=== PATIENT | male | born 1965 ===

== ENCOUNTER 2017-05-09 18:13 | Inpatient (IN) | payer OTHER ==
[2017-05-09 20:52] VITALS: BMI 23.1
--- NOTE | 2017-05-09 20:52 | HP ---
COWS - Scale Resting Pulse: 0= [place] 80 or Below Sweatin= Chills/Flushing Restless Observation: 3= Extraneous Movement Pupil Size: 0= Normal to Room Light Bone or Joint Aches: 2= Severe Diffuse Aches Runny Nose/ Eye Tearin= Runny Nose/Eyes GI Upset > 30mins: 2= Nausea/Diarrhea Tremor Observation: 2= Slight Tremor Visible Yawning Observation: 0= None Anxiety or Irritability: 2=Irritable/Anxious Goose Flesh Skin: 0=Smooth Skin COWS Score: [address] [facility] Chief Complaint: withdrawal sx Allergies/Adverse Reactions: Allergies Allergy/AdvReac Type Severity Reaction Status Date / Time No Known Allergies Allergy Verified 05/09/17 20:47 History of Present Illness: 51 years old male with long history of opioid nicotine dependence denies medical issue has depression is admitted to detox Exam Limitations: No Limitations - Ebola screening Have you traveled outside of the country in the last 21 days: No (N) Have you had contact with anyone from an Ebola affected area: No Have you been sick,other than usual withdrawal symptoms: No Do you have a fever: No - Review of Systems Constitutional: Loss of Appetite, Changes in sleep, Unintentional Wgt. Loss, Unexplained wgt Loss EENT: reports: No Symptoms Reported Respiratory: reports: No Symptoms reported Cardiac: reports: No Symptoms Reported GI: reports: Nausea, Poor Appetite, Poor Fluid Intake, Abdominal cramping : reports: No Symptoms Reported Musculoskeletal: reports: Back Pain, Joint Pain, Muscle Pain, Neck Pain Integumentary: reports: No Symptoms Reported Neuro: reports: Tremors Endocrine: reports: No Symptoms Reported Hematology: reports: No Symptoms Reported Psychiatric: reports: Judgement Intact, Orientated x3, Depressed Other Systems: Reviewed and Negative Patient History - Patient Medical History Hx Anemia: No Hx Asthma: No Hx Chronic Obstructive Pulmonary Disease (COPD): No Hx Cancer: No Hx Cardiac Disorders: No Hx Congestive Heart Failure: No Hx Hypertension: No Hx Hypercholesterolemia: No Hx Pacemaker: No HX Cerebrovascular Accident: No Hx Seizures: No Hx Dementia: No Hx Diabetes: No Hx Gastrointestinal Disorders: No Hx Liver Disease: No Hx Genitourinary Disorders: No Hx Sexually Transmitted Disorders: No Hx Renal Disease (ESRD): No Hx Thyroid Disease: No Hx Human Immunodeficiency Virus (HIV): No Hx Hepatitis C: No Hx Depression: Yes Hx Suicide Attempt: No Hx Bipolar Disorder: No Hx Schizophrenia: No - Patient Surgical History Past Surgical History: No - PPD History Previous Implant?: Yes Documented Results: Negative w/o proof Implanted On Prior [facility] Admission?: No PPD to be Administered?: Yes - Smoking Cessation Smoking history: Current every day smoker Have you smoked in the past 12 months: Yes Aproximately how many cigarettes per day: 10 Cigars Per Day: 0 Hx Chewing Tobacco Use: No Initiated information on smoking cessation: Yes 'Breaking Loose' booklet given: 05/09/17 - Substance & Tx. History Hx Alcohol Use: No Hx Substance Use: Yes Substance Use Type: Heroin, Opiates Hx Substance Use Treatment: No - Substances Abused Oxycontin Route: Oral Frequency: Daily Amount used: 360 mg Age of first use: 46 Date of Last Use: 05/09/17 Family Disease History - Family Disease History Family Disease History: Other: Father (), Mother () Admission Physical Exam [facility] - Physical General Appearance: Yes: Appropriately Dressed, Mild Distress, Tremorous, Irritable, Sweating, Anxious HEENTM: Yes: Hearing grossly Normal, Normal ENT Inspection, Normocephalic, Normal Voice Respiratory: Yes: Chest Non-Tender, Lungs Clear, Normal Breath Sounds, No Respiratory Distress, No Accessory Muscle Use Neck: Yes: Supple, Trachea in good position Breast: Yes: Breasts Symetrical Cardiology: Yes: Regular Rhythm, S1, S2, Bradycardia Abdominal: Yes: Normal Bowel Sounds, Non Tender, Soft Genitourinary: Yes: Within Normal Limits Back: Yes: Normal Inspection Musculoskeletal: Yes: full range of Motion, Gait Steady, Back pain, Muscle Pain Extremities: Yes: Normal Inspection, Normal Range of Motion, Non-Tender, Tremors Neurological: Yes: Fully Oriented, Alert, Motor Strength 5/5, Normal Response, Depressed Affect Integumentary: Yes: Warm Lymphatic: Yes: Within Normal Limits - Diagnostic (1) Opioid dependence with withdrawal Current Visit: Yes Status: Acute (2) Chronic back pain Current Visit: Yes Status: Chronic Qualifiers: Back pain location: low back pain Back pain laterality: bilateral Sciatica presence: without sciatica Qualified Code(s): M54.5 - Low back pain; G89.29 - Other chronic pain (3) Nicotine dependence Current Visit: Yes Status: Acute Qualifiers: Nicotine product type: cigarettes Substance use status: in withdrawal Qualified Code(s): F17.213 - Nicotine dependence, cigarettes, with withdrawal Cleared for Admission [facility] - Detox or Rehab [facility] Level of Care: Medically Managed Detox Regimen/Protocol: Methadone [facility] Breath Alcohol Content Breath Alcohol Content: 0 Vital Signs - Vital Signs Vital Signs Refused: No Temperature: 97.5 F Temperature Source: Oral Pulse Rate: 55 Respiratory Rate: 18 Blood Pressure: 117/71 BP Location: Left Arm Blood Pressure Position: Sitting - Height Height: 5 ft 8 in - Weight Weight: 152 lb Weight Measurement Method: Standing Scale Body Mass Index (BMI): 23.1 - Bowel Function Bowel Movement: Yes Urine Drug Screen - Control Is Test Valid: Yes - Results Drug Screen Negative: No Urine Drug Screen Results: OPI-Opiates, OXY-Oxycodone
[2017-05-09] MEDS ORDERED: IBUPROFEN 400 MG TABLET (FP) PO PRN (20:57)
[2017-05-09] MEDS ORDERED: MENTHOL/PHENOL 1 EACH UD MM PRN (20:57)
[2017-05-09] MEDS ORDERED: METHADONE HCL 10 MG TABLET (FOR DETOX USE ONLY) PO ONE ×2 (20:57→23:00)
[2017-05-09] MEDS ORDERED: LOPERAMIDE HCL 2 MG CAPSULE PO PRN (20:57)
[2017-05-09] MEDS ORDERED: NICOTINE POLACRILEX 2 MG GUM BUC PRN (20:57)
[2017-05-09] MEDS ORDERED: ACETAMINOPHEN 325 MG TABLET (FP) PO PRN (20:57)
[2017-05-09] MEDS ORDERED: MAG HYDROX/AL HYDROX/SIMETH 30 ML UNIT-DOSE CUP PO PRN (20:57)
[2017-05-09] MEDS ORDERED: MAGNESIUM HYDROX 2400MG/30ML ORAL SUSPENSION 30 ML CUP PO PRN (20:57)
[2017-05-09] MEDS ORDERED: diphenhydrAMINE HCL 50 MG CAPSULE PO PRN (20:57)
[2017-05-09] MEDS ORDERED: MAGNESIUM CITRATE 300 ML BOTTLE PO PRN (20:57)
[2017-05-09] MEDS ORDERED: guaiFENesin/D-METHORPHAN HB 10 ML UNIT-DOSE CUPS PO PRN (20:57)
[2017-05-09] MEDS ORDERED: P-EPHED 60MG/TRIPROLIDI 2.5MG TABLET PO PRN (20:57)
[2017-05-09] MEDS ORDERED: METHADONE HCL 10 MG TABLET (FOR DETOX USE ONLY) ONE (23:13)
[2017-05-09] MEDS: THIAMINE HCL 100 MG TABLET (FP) PO SCH (23:14)
[2017-05-09] MEDS: diazePAM 5 MG TABLET PO PRN (23:15)
[2017-05-09] MEDS: LIDOCAINE PATCH REMOVAL MC SCH (23:15)
[2017-05-09] MEDS: CYCLOBENZAPRINE HCL 10 MG TABLET (FP) PO SCH (23:15)
[2017-05-10 01:15] LABS: URINE APPEARANCE CLEAR; URINE BILIRUBIN NEGATIVE (NEGATIVE); URINE BLOOD NEGATIVE (NEGATIVE); URINE COLOR LTYELLOW; URINE GLUCOSE (UA) NEGATIVE (NEGATIVE); URINE KETONE NEGATIVE (NEGATIVE); URINE LEUK ESTERASE NEGATIVE (NEGATIVE); URINE NITRITE NEGATIVE (NEGATIVE); URINE PROTEIN NEGATIVE (NEGATIVE); URINE UROBILINOGEN NEGATIVE mg/dL (0.2-1.0)
[2017-05-10] MEDS: CYCLOBENZAPRINE HCL 10 MG TABLET (FP) PO SCH ×3 (05:52→22:33)
[2017-05-10] MEDS: diazePAM 5 MG TABLET PO PRN ×3 (05:53→19:45)
--- NOTE | 2017-05-10 09:53 | CONSULT ---
[facility] Psychiatric Consult - Data Date of interview: 05/10/17 Admission source: Self-referred Identifying data: Mr Suazo is a 52 years old [place] male, unemployed with no source of income, living with his sister seeking detox treatment for oxycontin Substance Abuse History: Reports history of opoid use. He started using oxycontin at age 46, consumes 360 mg daily. Last used on 05/09/17 Medical History: Significant for +PPD. Smokes 10 cigarettes daily Psychiatric History: Denies history of previous psychiatric treatment Physical/Sexual Abuse/Trauma History: Denies history of verbal, physical or sexual abuse as well as DV relationship Additional Comment: No criminal history Mental Status Exam - Mental Status Exam Alert and Oriented to: Place, Person Cognitive Function: Fair Patient Appearance: Well Groomed Mood: Depressed Affect: Appropriate Speech Pattern: Clear Voice Loudness: Normal Thought Process: Intact Thought Disorder: Not Present Hallucinations: Denies Suicidal Ideation: Denies Homicidal Ideation: Denies Insight/Judgement: Fair Sleep: Poorly Appetite: Fair Muscle strength/Tone: Normal Gait/Station: Normal Psychiatric Findings - Problem List ([place] 1, 2,3) (1) Substance induced mood disorder Current Visit: Yes Status: Acute (2) Substance-induced sleep disorder Current Visit: Yes Status: Acute (3) Opioid dependence with withdrawal Current Visit: Yes Status: Acute (4) Nicotine dependence Current Visit: Yes Status: Acute Qualifiers: Nicotine product type: cigarettes Substance use status: in withdrawal Qualified Code(s): F17.213 - Nicotine dependence, cigarettes, with withdrawal (5) Positive PPD, treated Current Visit: No Status: Acute - Initial Treatment Plan Initial Treatment Plan: 1) Start Ambien 10 mg po HS prn for insomnia. 2) Continue inpatient detoxification
[2017-05-10] MEDS ORDERED: METHADONE HCL 10 MG TABLET (FOR DETOX USE ONLY) PO ONE (10:00)
[2017-05-10] MEDS: PRENATAL VITAMINS W/ FOLIC ACID TABLET (FP) PO SCH (10:04)
[2017-05-10] MEDS: LIDOCAINE 5% TOPICAL PATCH TP SCH (10:07)
[2017-05-10] MEDS: NICOTINE 14 MG/24 HOURS TOPICAL PATCH TD SCH (10:07)
[2017-05-10 10:13] LABS: MCH 28.8 pg (25.7-33.7); MCHC 33.7 g/dl (32.0-35.9); MEAN CELL VOLUME 85.5 fl (80-96); MEAN PLT VOLUME 10.4 fl (7.5-11.1); PLATELET COUNT 150 K/MM3 (134-434); RDW 13.7 % (11.9-15.9); WHITE BLOOD COUNT 8.1 K/mm3 (4.0-10.0)
[2017-05-10 10:37] LABS: ALBUMIN 2.9 g/dl (3.4-5.0); ALK PHOS 74 U/L (45-117); ANION GAP 4 (8-16); BILIRUBIN,TOTAL 0.3 mg/dL (0.2-1.0); CALCIUM 8.5 mg/dL (8.5-10.1); CO2 30 mmol/L (21-32); CREATININE 0.7 mg/dL (0.7-1.3); GLUCOSE,RANDOM 107 mg/dL (74-106); SGOT/AST 10 U/L (15-37); SGPT/ALT 13 U/L (12-78); TOT PROT 5.6 g/dl (6.4-8.2)
--- NOTE | 2017-05-10 12:14 | EKG ---
Test Reason : Blood Pressure : / mmHG Vent. Rate : 048 BPM Atrial Rate : 048 BPM P-R Int : 124 ms QRS Dur : 102 ms QT Int : 456 ms P-R-T Axes : 069 086 051 degrees QTc Int : 407 ms SINUS BRADYCARDIA INCOMPLETE RIGHT BUNDLE BRANCH BLOCK BORDERLINE ECG WHEN COMPARED WITH ECG OF 09-MAY-2017 23:26, SINUS RHYTHM HAS REPLACED JUNCTIONAL RHYTHM INCOMPLETE RIGHT BUNDLE BRANCH BLOCK IS NOW PRESENT Confirmed by NILA MADRID, NOAH ([id number]) on 05/10/2017 12:14:05 PM Referred By: Confirmed By:NOAH DOTSON MD
--- NOTE | 2017-05-10 12:15 | EKG ---
Test Reason : Blood Pressure : / mmHG Vent. Rate : 063 BPM Atrial Rate : 063 BPM P-R Int : 000 ms QRS Dur : 102 ms QT Int : 434 ms P-R-T Axes : -80 078 043 degrees QTc Int : 444 ms UNUSUAL P AXIS AND SHORT WI, PROBABLE JUNCTIONAL RHYTHM WITH UNDETERMINED RHYTHM IRREGULARITY ABNORMAL ECG NO PREVIOUS ECGS AVAILABLE Confirmed by NOAH DOTSON MD ([id number]) on 05/10/2017 12:14:45 PM Referred By: Confirmed By:NOAH DOTSON MD
--- NOTE | 2017-05-10 15:14 | PN ---
BHS COWS - Scale Resting Pulse: 0= [place] 80 or Below Sweatin= Chills/Flushing Restless Observation: 1= Difficult to Sit Still Pupil Size: 0= Normal to Room Light Bone or Joint Aches: 2= Severe Diffuse Aches Runny Nose/ Eye Tearin= Runny Nose/Eyes GI Upset > 30mins: 1= Stomach Cramp Tremor Observation of Outstretched Hands: 2= Slight Tremor Visible Yawning Observation: 1= 1-2x During Session Anxiety or Irritability: 2=Irritable/Anxious Goose Flesh Skin: 3=Piloerection COWS Score: 15 BHS Progress Note (SOAP) Subjective: Tremors, Sweating, Interrupted Sleep. Objective: PT. A & O X 3, OBSERVED AMBULATING ON UNIT. NO ACUTE DISTRESS. 05/10/17 15:13 Vital Signs Temperature 98.3 F 05/10/17 13:51 Pulse Rate 59 L 05/10/17 13:51 Respiratory Rate 16 05/10/17 13:51 Blood Pressure 99/64 05/10/17 13:51 O2 Sat by Pulse Oximetry (%) Laboratory Tests 05/09/17 05/10/17 05/10/17 23:28 07:00 07:00 WBC 8.1 RBC 5.23 Hgb 15.1 Hct 44.7 MCV 85.5 MCH 28.8 MCHC 33.7 RDW 13.7 Plt Count 150 MPV 10.4 Sodium 141 Potassium 4.1 Chloride 107 Carbon Dioxide 30 Anion Gap 4 L BUN 15 Creatinine 0.7 Creat Clearance w eGFR > 60 Random Glucose 107 H Calcium 8.5 Total Bilirubin 0.3 AST 10 L ALT 13 Alkaline Phosphatase 74 Total Protein 5.6 L Albumin 2.9 L Urine Color Ltyellow Urine Appearance Clear Urine pH 6.0 Ur Specific [place] 1.010 Urine Protein Negative Urine Glucose (UA) Negative Urine Ketones Negative Urine Blood Negative Urine Nitrite Negative Urine Bilirubin Negative Urine Urobilinogen Negative RPR Titer 05/10/17 07:00 WBC RBC Hgb Hct MCV MCH MCHC RDW Plt Count MPV Sodium Potassium Chloride Carbon Dioxide Anion Gap BUN Creatinine Creat Clearance w eGFR Random Glucose Calcium Total Bilirubin AST ALT Alkaline Phosphatase Total Protein Albumin Urine Color Urine Appearance Urine pH Ur Specific [place] Urine Protein Urine Glucose (UA) Urine Ketones Urine Blood Urine Nitrite Urine Bilirubin Urine Urobilinogen RPR Titer Nonreactive labs noted. Assessment: 05/10/17 15:14 WITHDRAWAL SYMPTOMS. Plan: CONTINUE DETOX. INCREASE DAILY PO FLUID INTAKE.
[2017-05-10] MEDS ORDERED: ZOLPIDEM TARTRATE 10 MG TABLET (PARK CARE ONLY) PO PRN (22:00)
[2017-05-10] MEDS: THIAMINE HCL 100 MG TABLET (FP) PO SCH (22:34)
[2017-05-10] MEDS: LIDOCAINE PATCH REMOVAL MC SCH (22:34)
[2017-05-11] MEDS: diazePAM 5 MG TABLET PO PRN ×4 (05:13→22:35)
[2017-05-11] MEDS: CYCLOBENZAPRINE HCL 10 MG TABLET (FP) PO SCH ×3 (06:26→22:36)
[2017-05-11] MEDS ORDERED: METHADONE HCL 5 MG TABLET (FOR DETOX USE ONLY) PO ONE (10:00)
[2017-05-11] MEDS: NICOTINE 14 MG/24 HOURS TOPICAL PATCH TD SCH (10:04)
[2017-05-11] MEDS: PRENATAL VITAMINS W/ FOLIC ACID TABLET (FP) PO SCH (10:05)
[2017-05-11] MEDS: LIDOCAINE 5% TOPICAL PATCH TP SCH (10:07)
--- NOTE | 2017-05-11 15:20 | PN ---
BHS COWS - Scale Resting Pulse: 0= [place] 80 or Below Sweatin=Flushed/Facial Moisture Restless Observation: 1= Difficult to Sit Still Pupil Size: 0= Normal to Room Light Bone or Joint Aches: 2= Severe Diffuse Aches Runny Nose/ Eye Tearin= Runny Nose/Eyes GI Upset > 30mins: 2= Nausea/Diarrhea Tremor Observation of Outstretched Hands: 2= Slight Tremor Visible Yawning Observation: 1= 1-2x During Session Anxiety or Irritability: 2=Irritable/Anxious Goose Flesh Skin: 0=Smooth Skin COWS Score: 14 BHS Progress Note (SOAP) Subjective: Anxiety,body pain,interrupted sleep,restless Objective: 05/11/17 15:19 Vital Signs - 8 hr 05/11/17 05/11/17 09:31 12:58 Temperature 96.6 F L 100.3 F H Pulse Rate 72 70 Respiratory 20 20 Rate Blood Pressure 114/72 104/68 Laboratory Tests 05/09/17 05/10/17 05/10/17 23:28 07:00 07:00 WBC 8.1 RBC 5.23 Hgb 15.1 Hct 44.7 MCV 85.5 MCH 28.8 MCHC 33.7 RDW 13.7 Plt Count 150 MPV 10.4 Sodium 141 Potassium 4.1 Chloride 107 Carbon Dioxide 30 Anion Gap 4 L BUN 15 Creatinine 0.7 Creat Clearance w eGFR > 60 Random Glucose 107 H Calcium 8.5 Total Bilirubin 0.3 AST 10 L ALT 13 Alkaline Phosphatase 74 Total Protein 5.6 L Albumin 2.9 L Urine Color Ltyellow Urine Appearance Clear Urine pH 6.0 Ur Specific [place] 1.010 Urine Protein Negative Urine Glucose (UA) Negative Urine Ketones Negative Urine Blood Negative Urine Nitrite Negative Urine Bilirubin Negative Urine Urobilinogen Negative RPR Titer 05/10/17 07:00 WBC RBC Hgb Hct MCV MCH MCHC RDW Plt Count MPV Sodium Potassium Chloride Carbon Dioxide Anion Gap BUN Creatinine Creat Clearance w eGFR Random Glucose Calcium Total Bilirubin AST ALT Alkaline Phosphatase Total Protein Albumin Urine Color Urine Appearance Urine pH Ur Specific [place] Urine Protein Urine Glucose (UA) Urine Ketones Urine Blood Urine Nitrite Urine Bilirubin Urine Urobilinogen RPR Titer Nonreactive labs noted Assessment: 05/11/17 15:20 Withdrawal sx. Plan: Continue detox
[2017-05-11] MEDS: LIDOCAINE PATCH REMOVAL MC SCH (21:32)
[2017-05-11] MEDS: THIAMINE HCL 100 MG TABLET (FP) PO SCH (22:08)
[2017-05-11] MEDS: ZOLPIDEM TARTRATE 10 MG TABLET (PARK CARE ONLY) PO PRN (22:36)
[2017-05-12] MEDS: diazePAM 5 MG TABLET PO PRN ×4 (05:16→20:46)
[2017-05-12] MEDS: CYCLOBENZAPRINE HCL 10 MG TABLET (FP) PO SCH ×3 (05:16→22:03)
[2017-05-12] MEDS ORDERED: METHADONE HCL 5 MG TABLET (FOR DETOX USE ONLY) PO ONE (10:00)
[2017-05-12] MEDS: PRENATAL VITAMINS W/ FOLIC ACID TABLET (FP) PO SCH (10:02)
[2017-05-12] MEDS: NICOTINE 14 MG/24 HOURS TOPICAL PATCH TD SCH (10:02)
[2017-05-12] MEDS: LIDOCAINE 5% TOPICAL PATCH TP SCH (10:05)
--- NOTE | 2017-05-12 10:45 | PN ---
BHS Progress Note (SOAP) Subjective: DECREASE ANXIETY,SWEATS,TREMORS. Objective: 05/12/17 10:44 Vital Signs Temperature 97.0 F L 05/12/17 09:50 Pulse Rate 72 05/12/17 09:50 Respiratory Rate 18 05/12/17 09:50 Blood Pressure 102/70 05/12/17 09:50 O2 Sat by Pulse Oximetry (%) Laboratory Last Values WBC 8.1 K/mm3 (4.0-10.0) 05/10/17 07:00 RBC 5.23 M/mm3 (4.00-5.60) 05/10/17 07:00 Hgb 15.1 GM/dL (11.7-16.9) 05/10/17 07:00 Hct 44.7 % (35.4-49) 05/10/17 07:00 MCV 85.5 fl (80-96) 05/10/17 07:00 MCH 28.8 pg (25.7-33.7) 05/10/17 07:00 MCHC 33.7 g/dl (32.0-35.9) 05/10/17 07:00 RDW 13.7 % (11.9-15.9) 05/10/17 07:00 Plt Count 150 K/MM3 (134-434) 05/10/17 07:00 MPV 10.4 fl (7.5-11.1) 05/10/17 07:00 Sodium 141 mmol/L (136-145) 05/10/17 07:00 Potassium 4.1 mmol/L (3.5-5.1) 05/10/17 07:00 Chloride 107 mmol/L (98-107) 05/10/17 07:00 Carbon Dioxide 30 mmol/L (21-32) 05/10/17 07:00 Anion Gap 4 (8-16) L 05/10/17 07:00 BUN 15 mg/dL (7-18) 05/10/17 07:00 Creatinine 0.7 mg/dL (0.7-1.3) 05/10/17 07:00 Creat Clearance w eGFR > 60 (>60) 05/10/17 07:00 Random Glucose 107 mg/dL (74-106) H 05/10/17 07:00 Calcium 8.5 mg/dL (8.5-10.1) 05/10/17 07:00 Total Bilirubin 0.3 mg/dL (0.2-1.0) 05/10/17 07:00 AST 10 U/L (15-37) L 05/10/17 07:00 ALT 13 U/L (12-78) 05/10/17 07:00 Alkaline Phosphatase 74 U/L (45-117) 05/10/17 07:00 Total Protein 5.6 g/dl (6.4-8.2) L 05/10/17 07:00 Albumin 2.9 g/dl (3.4-5.0) L 05/10/17 07:00 Urine Color Ltyellow 05/09/17 23:28 Urine Appearance Clear 05/09/17 23:28 Urine pH 6.0 (5.0-8.0) 05/09/17 23:28 Ur Specific [place] 1.010 (1.005-1.025) 05/09/17 23:28 Urine Protein Negative (NEGATIVE) 05/09/17 23:28 Urine Glucose (UA) Negative (NEGATIVE) 05/09/17 23:28 Urine Ketones Negative (NEGATIVE) 05/09/17 23:28 Urine Blood Negative (NEGATIVE) 05/09/17 23:28 Urine Nitrite Negative (NEGATIVE) 05/09/17 23:28 Urine Bilirubin Negative (NEGATIVE) 05/09/17 23:28 Urine Urobilinogen Negative mg/dL (0.2-1.0) 05/09/17 23:28 RPR Titer Nonreactive (NONREACTIVE) 05/10/17 07:00 Assessment: 05/12/17 10:44 WITHDRAWAL SX Plan: CONTINUE DETOX
[2017-05-12] MEDS: THIAMINE HCL 100 MG TABLET (FP) PO SCH (22:03)
[2017-05-12] MEDS: ZOLPIDEM TARTRATE 10 MG TABLET (PARK CARE ONLY) PO PRN (22:03)
[2017-05-12] MEDS: LIDOCAINE PATCH REMOVAL MC SCH (22:03)
[2017-05-13] MEDS: CYCLOBENZAPRINE HCL 10 MG TABLET (FP) PO SCH ×3 (05:49→22:15)
[2017-05-13] MEDS ORDERED: METHADONE HCL 10 MG TABLET (FOR DETOX USE ONLY) PO ONE (10:00)
[2017-05-13] MEDS: NICOTINE 14 MG/24 HOURS TOPICAL PATCH TD SCH (10:11)
[2017-05-13] MEDS: PRENATAL VITAMINS W/ FOLIC ACID TABLET (FP) PO SCH (10:11)
[2017-05-13] MEDS: LIDOCAINE 5% TOPICAL PATCH TP SCH (10:12)
--- NOTE | 2017-05-13 14:09 | PN ---
BHS Progress Note (SOAP) Subjective: Anxious, Sweating. Objective: PT. A & O X 3, OBSERVED AMBULATING ON UNIT. NO ACUTE DISTRESS. 05/13/17 14:08 Vital Signs Temperature 95.6 F L 05/13/17 09:42 Pulse Rate 80 05/13/17 09:42 Respiratory Rate 18 05/13/17 09:42 Blood Pressure 85/59 05/13/17 09:42 O2 Sat by Pulse Oximetry (%) Laboratory Tests 05/09/17 05/10/17 05/10/17 23:28 07:00 07:00 WBC 8.1 RBC 5.23 Hgb 15.1 Hct 44.7 MCV 85.5 MCH 28.8 MCHC 33.7 RDW 13.7 Plt Count 150 MPV 10.4 Sodium 141 Potassium 4.1 Chloride 107 Carbon Dioxide 30 Anion Gap 4 L BUN 15 Creatinine 0.7 Creat Clearance w eGFR > 60 Random Glucose 107 H Calcium 8.5 Total Bilirubin 0.3 AST 10 L ALT 13 Alkaline Phosphatase 74 Total Protein 5.6 L Albumin 2.9 L Urine Color Ltyellow Urine Appearance Clear Urine pH 6.0 Ur Specific [place] 1.010 Urine Protein Negative Urine Glucose (UA) Negative Urine Ketones Negative Urine Blood Negative Urine Nitrite Negative Urine Bilirubin Negative Urine Urobilinogen Negative RPR Titer 05/10/17 07:00 WBC RBC Hgb Hct MCV MCH MCHC RDW Plt Count MPV Sodium Potassium Chloride Carbon Dioxide Anion Gap BUN Creatinine Creat Clearance w eGFR Random Glucose Calcium Total Bilirubin AST ALT Alkaline Phosphatase Total Protein Albumin Urine Color Urine Appearance Urine pH Ur Specific [place] Urine Protein Urine Glucose (UA) Urine Ketones Urine Blood Urine Nitrite Urine Bilirubin Urine Urobilinogen RPR Titer Nonreactive labs noted. Assessment: 05/13/17 14:08 WITHDRAWAL SYMPTOMS. Plan: CONTINUE DETOX. INCREASE DAILY PO FLUID INTAKE.
[2017-05-13] MEDS: LIDOCAINE PATCH REMOVAL MC SCH (21:35)
[2017-05-13] MEDS: ZOLPIDEM TARTRATE 10 MG TABLET (PARK CARE ONLY) PO PRN (21:57)
[2017-05-13] MEDS: THIAMINE HCL 100 MG TABLET (FP) PO SCH (22:14)
[2017-05-14] MEDS: CYCLOBENZAPRINE HCL 10 MG TABLET (FP) PO SCH (05:42)
[2017-05-14] MEDS ORDERED: METHADONE HCL 5 MG TABLET (FOR DETOX USE ONLY) PO ONE (06:00)
[2017-05-14 06:34] VITALS: BP 100/60; PULSE 68; TEMP 97.1
--- NOTE | 2017-05-14 12:43 | DS ---
[facility] Detox Discharge Summary Admission Date: 05/09/17 Discharge Date: 05/14/17 - History Present History: Opioid Dependence Pertinent Past History: Chronic back pain PPD Positive - Physical Exam Results Vital Signs: Vital Signs Temperature 97.1 F L 05/14/17 06:33 Pulse Rate 68 05/14/17 06:33 Respiratory Rate 16 05/14/17 06:33 Blood Pressure 100/60 05/14/17 06:33 O2 Sat by Pulse Oximetry (%) Pertinent Admission Physical Exam Findings: Withdrawal symptoms Laboratory Tests 05/09/17 05/10/17 05/10/17 23:28 07:00 07:00 WBC 8.1 RBC 5.23 Hgb 15.1 Hct 44.7 MCV 85.5 MCH 28.8 MCHC 33.7 RDW 13.7 Plt Count 150 MPV 10.4 Sodium 141 Potassium 4.1 Chloride 107 Carbon Dioxide 30 Anion Gap 4 L BUN 15 Creatinine 0.7 Creat Clearance w eGFR > 60 Random Glucose 107 H Calcium 8.5 Total Bilirubin 0.3 AST 10 L ALT 13 Alkaline Phosphatase 74 Total Protein 5.6 L Albumin 2.9 L Urine Color Ltyellow Urine Appearance Clear Urine pH 6.0 Ur Specific [place] 1.010 Urine Protein Negative Urine Glucose (UA) Negative Urine Ketones Negative Urine Blood Negative Urine Nitrite Negative Urine Bilirubin Negative Urine Urobilinogen Negative RPR Titer 05/10/17 07:00 WBC RBC Hgb Hct MCV MCH MCHC RDW Plt Count MPV Sodium Potassium Chloride Carbon Dioxide Anion Gap BUN Creatinine Creat Clearance w eGFR Random Glucose Calcium Total Bilirubin AST ALT Alkaline Phosphatase Total Protein Albumin Urine Color Urine Appearance Urine pH Ur Specific [place] Urine Protein Urine Glucose (UA) Urine Ketones Urine Blood Urine Nitrite Urine Bilirubin Urine Urobilinogen RPR Titer Nonreactive Labs noted - Treatment Hospital Course: Detox Protocol Followed, Detoxed Safely, Responded well, Discharged Condition Good - Medication Discharge Medications: Ambulatory Orders NK [No Known Home Medication] 05/09/17 - Diagnosis (1) Nicotine dependence Status: Chronic Qualifiers: Nicotine product type: cigarettes Substance use status: in withdrawal Qualified Code(s): F17.213 - Nicotine dependence, cigarettes, with withdrawal (2) Opioid dependence with withdrawal Status: Acute (3) Positive PPD, treated Status: Chronic (4) Chronic back pain Status: Chronic Qualifiers: Back pain location: low back pain Back pain laterality: bilateral Sciatica presence: without sciatica Qualified Code(s): M54.5 - Low back pain; G89.29 - Other chronic pain - AMA Did Patient Leave Against Medical Advice: No
== END 2017-05-14 08:46 | disposition home or self-care (01) | DRG 773 ==
LOC: YASAS 18:13 → Y3N 21:54
PROVIDERS: ADMIT Internal Medicine; ATTEND Internal Medicine
PROC: HZ2ZZZZ Detoxification Services for Substance Abuse Treatment (ICD-10-PCS; principal; 2017-05-09)
DX: F11.23 Opioid dependence with withdrawal (principal); F17.210 Nicotine dependence, cigarettes, uncomplicated; F19.282 Other psychoactive substance dependence with psychoactive substance-induced sleep disorder; F19.24 Other psychoactive substance dependence with psychoactive substance-induced mood disorder; M54.5 Low back pain; G89.29 Other chronic pain; R76.11 Nonspecific reaction to tuberculin skin test without active tuberculosis
CPT/HCPCS: 36415; 71020-TC; 80053; 81003; 85027; 86593; 93005; 93010